=== PATIENT | female | born 1980 | race Caucasian/White ===

== ENCOUNTER 2020-10-31 21:11 | Emergency (ER) | payer BC, SELFPAY ==
[2020-10-31 21:24] VITALS: BP 134/90; PULSE 74; RESP 22; TEMP 36.6; O2SAT 99; BMI 35.3
[2020-10-31 21:33] VITALS: BMI 34.2
[2020-10-31 21:34] VITALS: BP 123/73; PULSE 78; RESP 12; O2SAT 99
--- NOTE | 2020-10-31 21:35 | HMH.EDALLER ---
ED Disposition Clinical Impression: Bee sting Qualifiers: Encounter type: initial encounter Injury intent: accidental or unintentional Qualified Code(s): T63.441A - Toxic effect of venom of bees, accidental (unintentional), initial encounter Disposition: Home, Self-Care Condition on Discharge: Good Instructions: DI for Insect Bites and Stings Additional Instructions: use meds and see pcp for follow up Prescriptions: EPINEPHrine [Epipen 2-Savage] 0.3 mg IM DIRECTED #1 auto.injct [facility] predniSONE [Prednisone 20mg Tab] 20 mg PO BID #10 tab Transmission Status: [facility] Referrals: Provider,Referral, MD [Primary Care Provider] - - Critical Care Critical Care Time: No Attestation: On 10/31/20, the high probability of a clinically significant, sudden or life threatening deterioration of the following system(s) required my full and direct attention, intervention and personal management. The time I documented below is in addition to time spent performing reported procedures but includes the following listed in this critical care notation. Medical Decision Making - Medical Records Medical records reviewed: Yes: I reviewed the patient's medical records. - [place] Inquiry Pt receiving controlled substance: No Vital Signs: 10/31/20 21:24 10/31/20 21:34 Temperature 97.8 F Temperature Source Oral Pulse Rate 78 Pulse Rate [Left] 74 Respiratory Rate 22 12 Blood Pressure 123/73 Blood Pressure [Left Arm] 134/90 Blood Pressure Mean [Left Arm] 104 Blood Pressure Source [Left Arm] Automatic Cuff Blood Pressure Position Sitting Blood Pressure Position [Left Arm] Sitting 02 Sat by Pulse Oximetry 99 99 Oxygen Delivery Method Room Air Orders (Tests/Meds): ED MEDICATIONS Generic Name Dose Route Start Last Admin Trade Name Freq PRN Reason Stop Dose Admin Sodium Chloride 8 ml 10/31/20 21:34 Sodium Chloride 0.9% 10ml Vial IV 11/30/20 21:33 NEEDED PRN dilute pepcid Discontinued Medications Generic Name Dose Route Start Last Admin Trade Name Freq PRN Reason Stop Dose Admin Famotidine 20 mg 10/31/20 21:34 10/31/20 21:35 Famotidine 20mg/2ml Vial IV 10/31/20 21:35 20 mg ONCE ONE Administration Methylprednisolone Sodium Succinate 125 mg 10/31/20 21:34 10/31/20 21:35 Methylprednisolone Sod Succ 125mg Vial IV 10/31/20 21:35 125 mg ONCE ONE Administration Medical Decision Narrative: stable after meds - but no airway issues at this time - discussed anaphylaxsis Allergic React/Insect Bite HPI - General Chief complaint: Animal Bite Stated complaint: bee sting Time Seen by Provider: 10/31/20 21:30 Mode of Arrival - ED Triage: Ambulatory Source of Information: Patient, Medical Record Limitations: No Limitations - History of Present Illness HPI narrative: bee sting and has bee in lt ear canal - no diff with breathing at this time but swelling to face MD complaint: other (bee stings ) Onset (ago): hour(s) Exposure: insect bite Symptoms: facial swelling Treatment prior to arrival: benadryl Allergies/Adverse Reactions: Allergies Allergy/AdvReac Type Severity Reaction Status Date / Time penicillin G [PENICILLIN G] Allergy Mild Verified 03/13/18 17:07 Previous Allergic Reaction History: other (swelling ) Severity: moderate - Related Data Previous Rx's Medication Instructions Recorded methylPREDNISolone [Medrol] 4 mg PO DIRECTED 6 Days #21 01/24/19 tab.ds.pk EPINEPHrine [Epipen 2-Savage] 0.3 mg IM DIRECTED #1 auto.injct 10/31/20 predniSONE [Prednisone 20mg 20 mg PO BID #10 tab 10/31/20 Tab] [facility] History - Hepatitis A Screen Drug use history?: No High risk sexual behaviors?: No History of sexually transmitted infection?: No Currently employed?: No Childcare worker?: No Do you have indoor plumbing?: Yes Do you have electricity?: Yes Attestation
[2020-10-31 22:19] VITALS: BP 120/75; PULSE 78; RESP 14; TEMP 36.6; O2SAT 99
[2020-10-31 22:28] VITALS: BP 114/64; PULSE 78; RESP 16; TEMP 36.6; O2SAT 98
== END 2020-10-31 22:29 | disposition home or self-care (01) ==
PROVIDERS: Emergency Provider Emergency Medicine
DX: T63.441A Toxic effect of venom of bees, accidental (unintentional), initial encounter (principal); T16.2XXA Foreign body in left ear, initial encounter; Z88.0 Allergy status to penicillin
CPT/HCPCS: 69200; 96374; 96375; 99281

== ENCOUNTER 2021-01-15 13:14 | Emergency (ER) | payer BC, SELFPAY ==
[2021-01-15 13:15] VITALS: BP 117/75; PULSE 72; RESP 19; TEMP 36.9; O2SAT 98; BMI 30.8
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
[2021-01-15 13:43] VITALS: BP 117/75; PULSE 72; RESP 19; TEMP 36.9; O2SAT 98
== END 2021-01-15 13:45 | disposition home or self-care (01) ==
PROVIDERS: Emergency Provider Nurse Practitioner
DX: S05.91XA Unspecified injury of right eye and orbit, initial encounter (principal); W22.8XXA Striking against or struck by other objects, initial encounter; Z88.0 Allergy status to penicillin
CPT/HCPCS: 99202; G0463

== ENCOUNTER 2021-08-29 11:53 | Emergency (ER) | payer BC, SELFPAY ==
[2021-08-29 14:05] VITALS: BP 125/84; PULSE 76; RESP 18; TEMP 36.8; O2SAT 99; BMI 32.3
--- NOTE | 2021-08-29 14:14 | HMH.EDUTC ---
[facility] [place] Disposition Clinical Impression: Shingles Qualifiers: Herpes zoster complications: without complications Qualified Code(s): B02.9 - Zoster without complications Disposition: Home, Self-Care Condition on Discharge: Good Instructions: Shingles, DI for Shingles Additional Instructions: Use aveeno oatmeal bath. It is supposed to sooth these symptoms. Take the medications as directed. Follow up with your primary care physician. GO TO THE ER FOR ANY WORSENING SYMPTOMS OR CONCERNS Prescriptions: Ibuprofen [Ibuprofen 800mg Tablet] 800 mg PO Q8HP PRN #30 tab PRN Reason: Moderate Pain Transmission Status: Received by [facility] Acyclovir 800 mg PO 5XDAY 7 Days #35 tab Transmission Status: Received by [facility] predniSONE [Deltasone 10mg tablet] 10 mg PO BID 3 Days #6 tab Transmission Status: Received by [facility] Triamcinolone Acetonide 1 applicatio TP TIDP PRN 7 Days #1 gm PRN Reason: Itching Transmission Status: Received by [facility] Referrals: Provider,Referral, [Primary Care Provider] - Time of Disposition: 14:50 Medical Decision Making - Medical Records Medical records reviewed: No: I reviewed the patient's medical records. - [place] Inquiry Pt receiving controlled substance: No Vital Signs: 08/29/21 14:05 08/29/21 14:53 Temperature 98.2 F 98.2 F Temperature Source Oral Pulse Rate 76 Pulse Rate [Left] 76 Respiratory Rate 18 18 Blood Pressure 125/84 Blood Pressure [Right Arm] 125/84 Blood Pressure Mean [Right Arm] 97 02 Sat by Pulse Oximetry 99 [facility] [place] HPI - General Stated complaint: blisters on back Time Seen by Provider: 08/29/21 14:14 Mode of Arrival: Ambulatory Source of Information: Patient Limitations: No Limitations Description of Symptoms (Recalled from Triage Doc. by RN): pt has a small patch of scaly, dry, red rash on her back. pt states it nam and tingles. HEENT Symptoms (Recalled from RN notes): No Resp Symptoms (Recalled from RN notes): No Skin Symptoms (Recalled from RN notes): Yes MS Symptoms (Recalled from RN notes): No Functional Status (Recalled from RN notes): wnl - History of Present Illness Provider Complaint: She has a painful rash on her upper right back. - Related Data Previous Rx's Medication Instructions Recorded Acyclovir 800 mg PO 5XDAY 7 Days #35 tab 08/29/21 Ibuprofen [Ibuprofen 800mg 800 mg PO Q8HP PRN #30 tab 08/29/21 Tablet] Triamcinolone Acetonide 1 applicatio TP TIDP PRN 7 Days #1 08/29/21 gm predniSONE [Deltasone 10mg tablet] 10 mg PO BID 3 Days #6 tab 08/29/21 Allergies Allergy/AdvReac Type Severity Reaction Status Date / Time penicillin G [PENICILLIN G] Allergy Mild Verified 03/13/18 17:07 - Worker's Comp Is this a Worker's Comp case?: No [facility] History - Hepatitis A Screen Drug use history?: No High risk sexual behaviors?: No History of sexually transmitted infection?: No Currently employed?: No Childcare worker?: No Do you have indoor plumbing?: Yes Do you have electricity?: Yes Attestation statement:: This patient has been screened for Hepatitis A risk factors. I have reviewed the patient's past medical history: Yes Medical History: Denies:: Diabetes Mellitus Type 1, Diabetes Mellitus Type 2 Other Surgeries: Yes: (two) Amputation: No Fractures: No Comment: knee surgery, breast augmentation - Social History Smoking Status: Never smoker Alcohol Intake: never Alcohol Intake Frequency:: a few times a week Occupational Status: other Family Hx:: Thyroid Disorder, Diabetes Comment: autoimmune disease, RA ROS Obtained: Yes All systems reviewed & no additional complaints - Constitutional Constitutional: Denies chills, Denies fever(s), Reports lethargy - Musculoskeletal Musculoskeletal: Denies joint pain - Integumentary/Breasts Skin/Breast: Reports as per HPI Physical Exam - General General appearance: alert, in
[2021-08-29 14:53] VITALS: BP 125/84; PULSE 76; RESP 18; TEMP 36.8
== END 2021-08-29 14:56 | disposition home or self-care (01) ==
PROVIDERS: Emergency Provider Nurse Practitioner Family
DX: B02.9 Zoster without complications (principal)
CPT/HCPCS: 99202; G0463